=== PATIENT | female | born 1940 | race Caucasian/White ===

== ENCOUNTER 2017-01-10 06:36 | Day surgery (SDC) | payer MEDICARE, OTHER ==
[2017-01-08 11:21] LABS: HEMATOCRIT 42.3 % (36.0-48.0); HEMOGLOBIN 13.8 g/dL (12.0-16.0)
[2017-01-08 11:36] LABS: CALCIUM, SERUM 9.2 MG/DL (8.5-10.4); CHLORIDE, SERUM 107 MMOL/L (96-112); CO2 (CARBON DIOXIDE) 27 MMOL/L (24-34); CREATININE 0.87 MG/DL (0.55-1.02); GFR AFRICAN AMERICAN 74 ML/MIN (>=60); GFR NON AFRICAN AMERICAN 64 ML/MIN (>=60); GLUCOSE, SERUM 89 MG/DL (60-99); POTASSIUM, SERUM 4.6 MMOL/L (3.5-5.3); SODIUM, SERUM 142 MMOL/L (135-148)
[2017-01-08 11:37] LABS: BUN (BLOOD UREA NITROGEN) 19 MG/DL (6-23)
[~2017-01-10] VITALS: Ht 157.5 cm; Wt 66.2 kg
[~2017-01-10 06:36] MED LIST: ALIGN PO; CALTRA600D PO; CENTRUM PO; CIP5 PO; CRESTOR10 PO; CRESTOR5 MG PO; CYANO1000T PO; DETROLLA4 PO; DSS PO; FISH OIL; FISH-EPA1000 MG PO; FLOMAX4 PO; FLONASE NAS; KCL PO; L20 PO; LEXAPRO10 PO; LOP25 PO; LORTAB 5 PO; METAMUCIL CAN7 OZ PO; MOBIC7.5 PO; MULTIPLE VIT PO; MULTIVIT/MIN PO; MYRAC100 MG; NIASPAN500 PO; OCUVITE PO; OS500+D PO; PCET PO; PERI-COLACE1 TAB PO; PREM625 PO; PRILO PO; PRILOSEC OTC20 MG PO; PVC V; PYR200 PO; STOOL SOFTEN100 MG PO; THERALITH XR PO; TOF50 PO; TOVIAZ4 MG PO; VITAMIN D1000 UNI1 PO; VITAMIN D2000 UNIT PO; VITC500 PO; ZYRTEC ALLGY10 MG PO; [UNRECOGNIZED DRUG - OTHER]; [UNRECOGNIZED DRUG - OTHER] PO
== END 2017-01-10 23:59 | disposition home or self-care (01) ==
LOC: SDC 06:36
PROVIDERS: Ophthalmology
DX: E11.36 Type 2 diabetes mellitus with diabetic cataract (principal); F32.9 Major depressive disorder, single episode, unspecified; Z53.8 Procedure and treatment not carried out for other reasons; Z87.442 Personal history of urinary calculi; Z79.899 Other long term (current) drug therapy; Z98.42 Cataract extraction status, left eye; Z90.710 Acquired absence of both cervix and uterus; Z96.1 Presence of intraocular lens; Z90.49 Acquired absence of other specified parts of digestive tract; Z98.890 Other specified postprocedural states; Z88.6 Allergy status to analgesic agent; Z91.048 Other nonmedicinal substance allergy status; Z91.018 Allergy to other foods
CPT/HCPCS: 80048; 82962; 85014; 85018; 93005